=== PATIENT | male | born 1970 | race Two or more races ===

== ENCOUNTER 2017-08-06 23:38 | Emergency (ER) | payer MEDICAID ==
[~2017-08-06] VITALS: Ht 177.8 cm; Wt 74.8 kg
[2017-08-07 00:33] LABS: Basophils # (auto) 0.1 uL; Basophils % (auto) 1.5 % (0.0-2.0); Eosinophils # (auto) 0.2 uL; Hematocrit 43.2 % (41.0-53.0); Lymphocytes # (auto) 2.1 uL; Lymphocytes % (auto) 33.4 % (10.0-50.0); Mean Corpuscular Hemoglobin 28.9 pg (28.0-32.0); Mean Corpuscular Hgb Conc. 34.7 g/dL (32.0-36.0); Mean Corpuscular Volume 83.4 fL (80.0-100.0); Monocytes # (auto) 0.7 uL; Monocytes % (auto) 10.4 % (0.0-12.0); Neutrophils # (auto) 3.3 uL; Neutrophils % (auto) 51.7 % (37.0-80.0); Nucleated Red Blood Cells % 0.1 %; Platelet Count (auto) 317 10^3/uL (140-450); Red Blood Cells 5.18 10^6/uL (4.5-5.90); White Blood Cell 6.4 10^3/uL (4.4-10.8)
[2017-08-07 00:51] LABS: Albumin 3.8 g/dL (3.4-5.0); BUN/Creatinine Ratio 17.1; Calcium 9.3 mg/dL (8.5-10.1); Potassium 4.2 mmol/L (3.5-5.1)
[2017-08-07 00:53] LABS: Bilirubin, Total 0.7 mg/dL (0.2-1.0); Total Protein 7.3 g/dL (6.4-8.2)
[2017-08-07] MEDS ORDERED: SODIUM CHLORIDE 0.9% 1,000 ML IV ONE (07:21)
[2017-08-07] MEDS ORDERED: InsuLIN REG 1unit/0.01ml Soln (100units/ml) SC ONE (07:30)
[2017-08-07 09:05] VITALS: BP 99/80
== END 2017-08-07 09:45 | disposition home or self-care (01) ==
LOC: ER 23:43
DX: E11.65 Type 2 diabetes mellitus with hyperglycemia (principal)
CPT/HCPCS: 36415; 80053; 82962; 85025; 96360; 96372; 99284; J1815

== ENCOUNTER 2019-04-19 21:02 | Emergency (ER) | payer MEDICAID ==
[~2019-04-19] VITALS: Ht 170.2 cm; Wt 83.9 kg
[~2019-04-19 21:02] MED LIST: ASPI81CH43 PO; BISA-51 PO; CHOL20007 PO; DOCU-94 PO; GABA300C10 PO; GLIP10TA9 PO; INSLANTI SC; LANS30CA57 PO; LEVO50TA66 PO; METF-371 PO; TIZA4CAP PO; TRAM50TA2 PO; [UNRECOGNIZED DRUG - CODE] PO
[2019-04-20 01:45] VITALS: BP 115/75
== END 2019-04-20 02:07 | disposition home or self-care (01) ==
LOC: ER 21:03
DX: S00.03XA Contusion of scalp, initial encounter (principal); E11.9 Type 2 diabetes mellitus without complications; Z79.899 Other long term (current) drug therapy; W19.XXXA Unspecified fall, initial encounter; Y93.89 Activity, other specified; Y92.89 Other specified places as the place of occurrence of the external cause; Y99.8 Other external cause status
CPT/HCPCS: 70450; 72125